=== PATIENT | female | born 1985 | race African-American/Black ===

== ENCOUNTER 2017-02-01 23:55 | Emergency (ER) | payer SELFPAY | END 2017-02-01 23:58 | disposition home or self-care (01) | LOC: CED 23:55 | DX: I82.401 Acute embolism and thrombosis of unspecified deep veins of right lower extremity (principal); F17.210 Nicotine dependence, cigarettes, uncomplicated; Z98.51 Tubal ligation status | CPT/HCPCS: 99283 ==